=== PATIENT | male | born 1960 | race Caucasian/White ===

== ENCOUNTER 2016-05-03 04:25 | Inpatient (IN) | payer OTHER ==
[~2016-05-03] VITALS: Ht 182.9 cm; Wt 113.4 kg
--- NOTE | 2016-05-03 04:35 | NUR ---
PT BB [id number]. N/V & DIZZINESS S/P TAKING HCTZ. PT AOX3 RR EVEN AND UNLABORED. NO SOB NOTED. NAD NOTED. NO NVD AT THIS TIME. PT NOT DIAPHORETIC. PT GOWNED AND PLACED ON MONITOR WAITING FOR MD KIRKLAND.
--- NOTE | 2016-05-03 05:03 | NUR ---
DR. NAILS AT BEDSIDE FOR EVAL.
[2016-05-03] MEDS ORDERED: IV NS 0.9% 1,000 ML ONE (05:22)
[2016-05-03] MEDS ORDERED: IV SET PRIMARY 1 EA INFUS.SET MC ONE (05:22)
[2016-05-03] MEDS ORDERED: LORAZEPAM INJ 2 MG/ML VIAL ONE (05:26)
[2016-05-03] MEDS ORDERED: PROCHLORPERAZINE EDISYLATE 10 MG/2 ML VIAL ONE (05:27)
[2016-05-03] MEDS ORDERED: diphenhydrAMINE HCL 50 MG/ML VIAL ONE (05:27)
[2016-05-03] MEDS ORDERED: IV NS 0.9% 1,000 ML BAG IV ONE (05:30)
[2016-05-03] MEDS ORDERED: diphenhydrAMINE HCL 50 MG/ML VIAL IV ONE (05:30)
[2016-05-03] MEDS ORDERED: PROCHLORPERAZINE EDISYLATE 10 MG/2 ML VIAL IVP ONE (05:30)
[2016-05-03] MEDS ORDERED: LIDOCAINE VISCOUS 2% UD 15 ML UDC MM ONE (05:30)
[2016-05-03] MEDS ORDERED: MAG HYDROX/AL HYDROX/SIMETH 30 ML UDC PO ONE (05:30)
[2016-05-03] MEDS ORDERED: DICYCLOMINE HCL 10 MG CAPSULE PO ONE (05:30)
[2016-05-03] MEDS ORDERED: LORAZEPAM INJ 2 MG/ML VIAL IV ONE (05:30)
[2016-05-03] MEDS ORDERED: ONDANSETRON HCL/PF 4 MG/2 ML VIAL IVP ONE (05:30)
[2016-05-03] MEDS ORDERED: HYDROMORPHONE INJ 2 MG/ML DISP.SYRIN IV ONE (05:30)
[2016-05-03 05:38] LABS: BASOPHILS % (AUTO) 0.3 % (0.0-2.0); EOSINOPHILS % (AUTO) 0.5 % (0.0-6.0); HEMATOCRIT 43 % (39-51); HEMOGLOBIN 14.5 g/dL (13.5-17.5); LYMPHOCYTES # (AUTO) 0.7 /CMM (0.8-4.8); MEAN CORPUSCULAR HEMOGLOBIN 29 PG (26.0-33.0); MEAN CORPUSCULAR HGB CONC 34 g/dl (31.0-36.0); MEAN CORPUSCULAR VOLUME 86 fL (80-96); MONOCYTES # (AUTO) 0.4 /CMM (0.1-1.30); MONOCYTES % (AUTO) 7.1 % (2.0-12.0); NEUTROPHILS # (AUTO) 4.5 /CMM (1.8-8.9); NEUTROPHILS % (AUTO) 79.1 % (43.0-81.0); PLATELET COUNT (AUTO) 255 /CMM (150-450); RDW COEFFICIENT OF VARIATION 13.9 (11.5-15.0); RED BLOOD CELL COUNT(AUTO) 4.93 MIL/uL (4.5-6.0); WHITE BLOOD COUNT (AUTO) 5.7 K/uL (4.3-11.0)
[2016-05-03 05:46] LABS: CALCIUM, SERUM 9.3 mg/dL (8.5-10.1); POTASSIUM 3.2 mmol/L (3.5-5.1)
[2016-05-03 05:50] LABS: INR 0.99 (0.87-1.13); PROTHROMBIN TIME 10.6 SECS (9.5-12.7)
[2016-05-03 05:52] LABS: ALBUMIN 3.8 g/dL (3.4-5.0); BILIRUBIN,DIRECT 0.1 mg/dL (0.0-0.2); BILIRUBIN,TOTAL 0.5 mg/dL (0.2-1.0); TOTAL PROTEIN, SERUM 7.2 g/dL (6.4-8.2)
--- NOTE | 2016-05-03 06:27 | NUR ---
Patient is resting comfortably in bed with eyes closed. Easily aroused. VSS
--- NOTE | 2016-05-03 06:48 | NUR ---
PT TO CT.
--- NOTE | 2016-05-03 07:02 | NUR ---
PT RETURNED FROM CT.
--- NOTE | 2016-05-03 07:11 | NUR ---
REPORT GIVEN TO DONA KEYS FOR CARA.
--- NOTE | 2016-05-03 07:21 | NUR ---
RECEIVED PATIENT ON BED, ASLEEP. NO ACUTE DISTRESS. VSS
--- NOTE | 2016-05-03 07:48 | NUR ---
PANEL PAGED, DR GALE OUTGOING INSPECTOR [phone]
--- NOTE | 2016-05-03 08:11 | NUR ---
DR. MARTIN ON PHONE, TALKING TO MD TIAN FOR ADMISSION
--- NOTE | 2016-05-03 08:34 | NUR ---
REPORT GIVEN TO NURSE HORN FOR CARA
--- NOTE | 2016-05-03 08:35 | NUR ---
PATIENT TRANSFERRED TO [facility] [place]. S
[2016-05-03 08:50] VITALS: BP 114/63
--- NOTE | 2016-05-03 08:50 | NUR ---
MS RN NOTES PATIENT ON FLOOR. NO SOB OR DISTRESS NOTED AT THIS TIME. PATIENT DENIES PAIN. PATIENT WAS ABLE TO AMBULATE TO ROOM WITHOUT DIFFICULTY. VITAL SIGNS CHECKED AND RECORDED. IV FLUSHES WELL. PICTURES NOT NEEDED SKIN IS INTACT. BELONGINGS CHECKED AND ACCOUNTED FOR. PATIENT ORIENTED TO ROOM AND CALL LIGHT. BED IN A LOW POSITION, CALL LIGHT WITHIN PATIENT REACH. WILL CONTINUE TO MONITOR.
[2016-05-03] MEDS ORDERED: APIX5TAB PO (08:54)
[2016-05-03] MEDS ORDERED: TRAV5DRO EACHEYE (08:54)
[2016-05-03] MEDS ORDERED: HYDR12.5 PO (08:54)
[2016-05-03] MEDS ORDERED: ZOLPIDEM TARTRATE 5 MG TABLET PO PRN (09:00)
[2016-05-03] MEDS ORDERED: ONDANSETRON HCL/PF 4 MG/2 ML VIAL IVP PRN (09:00)
[2016-05-03] MEDS ORDERED: POTASSIUM CHLORIDE 20 MEQ TAB.PRT.SR PO ONE (09:00)
[2016-05-03] MEDS ORDERED: MECLIZINE HCL 12.5 MG TABLET PO PRN (09:00)
[2016-05-03] MEDS ORDERED: ACETAMINOPHEN 325 MG TABLET PO PRN (09:00)
[2016-05-03] MEDS ORDERED: Z GUARD REMEDY 2 OZ OINT TP PRN (09:00)
[2016-05-03] MEDS ORDERED: MAG HYDROX/AL HYDROX/SIMETH 30 ML UDC PO PRN (09:00)
[2016-05-03] MEDS ORDERED: MAGNESIUM HYDROXIDE 30 ML UDC PO PRN (09:00)
[2016-05-03] MEDS ORDERED: ONDANSETRON HCL/PF 4 MG/2 ML VIAL IV PRN (09:00)
[2016-05-03] MEDS ORDERED: HYDROCODONE/APAP 5/325MG 1 EACH TABLET PO PRN (09:00)
--- NOTE | 2016-05-03 09:10 | NUR ---
MS RN NOTES DR ORTEGA INFORMED OF NEED FOR MED RECON. STATES SHE WILL TAKE CARE OF IT.
[2016-05-03 09:21] LABS: THYROID STIMULATING HORMONE 0.778 uIU/mL (0.358-3.74)
[2016-05-03] MEDS ORDERED: IV SET PRIMARY PUMP SET 1 EA INFUS.SET MC ONE (09:49)
[2016-05-03] MEDS: IV NS 0.9% 1,000 ML IV PRN ×2 (10:07→22:14)
[2016-05-03] MEDS ORDERED: IV NS 0.9% 250 ML IV ONE (12:00)
[2016-05-03] MEDS ORDERED: CT SWABBABLE VALVE TRANS SET 1 EA INFUS.SET MC ONE (12:00)
[2016-05-03] MEDS ORDERED: IOHEXOL-350 100 ML VIAL IV ONE (12:00)
--- NOTE | 2016-05-03 13:45 | NUR ---
MS RN NOTES DR ORTEGA ON FLOOR. AGAIN INFORMED MD THAT MED RECON HAS NOT YET BEEN COMPLETED. MD STATES THAT SHE WILL TAKE CARE OF IT AFTER HER ROUNDS AND WROTE THE PATIENT'S NAME ON HER TO DO LIST.
--- NOTE | 2016-05-03 15:58 | NUR ---
MS RN NOTES REMINDED DR ORTEGA ABOUT MEDRECON ONCE MORE. TO PLACE ORDERS.
[2016-05-03 16:00] VITALS: BP 126/67
[2016-05-03] MEDS: APIXABAN 5 MG TABLET PO SCH (17:07)
--- NOTE | 2016-05-03 18:57 | NUR ---
MS RN NOTES NO SIGNIFICANT CHANGES IN PATIENT CONDITION THROUGHOUT THE SHIFT. NO SOB OR DISTRESS NOTED AT THIS TIME. PATIENT DENIES PAIN. BED IN LOW POSITION, CALL LIGHT WITHIN PATIENT REACH. WILL ENDORSE TO NEXT SHIFT RN.
--- NOTE | 2016-05-03 19:30 | NUR ---
RN NOTE; RECEIVED PT IN BED AWAKE, A, OX4. BREATHING EVENLY. NO SOB. NO C/O PAIN OR DISCOMFORT. NO EPISODE OF N/V OR VERTIGO. ON ONGOING IVF HYDRATION ASYA WELL. NEEDS ATTENDED. BED LOW LOCKED. CALL LIGHT WITHIN REACH , WILL CONT TO MONITOR
[2016-05-03 20:00] VITALS: BP 126/72
[2016-05-03] MEDS ORDERED: LATANOPROST EYE DROP 0.005% 2.5 ML BOTTLE EACHEYE SCH (22:00)
--- NOTE | 2016-05-03 22:16 | NUR ---
PT REFUSED XALATAN EYE DROP. PER PT HE TAKES DIFFERENT EYE DROPS FOR GLAUCOMA.
--- NOTE | 2016-05-03 22:46 | NUR ---
TYLENOL GIVEN FOR C/O MILD H/A. IV SITE CHANGED TO L HAND. WILL CONT TO MONITOR
--- NOTE | 2016-05-04 06:31 | NUR ---
RN NOTE; PT IN BED DOZING INTERMITTENTLY. BREATHING EVENLY. NO SOB,. NO DISTRESS. PT ABLE TO AMBULATE TO THE BATHROOM W/ SUPERVISION W/ NO EPISODE OR C/O VERTIGO OR N/V. ASSISTED W/ ADLS. CALL LIGHT WITHIN REACH. WILL CONT TO MONITOR AND WILL ENDORSE TO AM SHIFT FOR CARA.
[2016-05-04 07:19] LABS: CALCIUM, SERUM 8.6 mg/dL (8.5-10.1); CREATININE 0.8 mg/dL (0.6-1.3); MAGNESIUM 1.9 mg/dL (1.8-2.4); POTASSIUM 4.6 mmol/L (3.5-5.1)
[2016-05-04] MEDS ORDERED: PANTOPRAZOLE 40 MG TABLET.DR PO SCH (07:30)
[2016-05-04 07:32] LABS: BASOPHILS % (AUTO) 0.4 % (0.0-2.0); EOSINOPHILS % (AUTO) 1.2 % (0.0-6.0); HEMATOCRIT 39 % (39-51); HEMOGLOBIN 12.9 g/dL (13.5-17.5); LYMPHOCYTES # (AUTO) 1.1 /CMM (0.8-4.8); MEAN CORPUSCULAR HEMOGLOBIN 30 PG (26.0-33.0); MEAN CORPUSCULAR HGB CONC 34 g/dl (31.0-36.0); MEAN CORPUSCULAR VOLUME 89 fL (80-96); MONOCYTES # (AUTO) 0.4 /CMM (0.1-1.30); NEUTROPHILS # (AUTO) 2.4 /CMM (1.8-8.9); NEUTROPHILS % (AUTO) 59.4 % (43.0-81.0); PLATELET COUNT (AUTO) 219 /CMM (150-450); RDW COEFFICIENT OF VARIATION 14.4 (11.5-15.0); RED BLOOD CELL COUNT(AUTO) 4.36 MIL/uL (4.5-6.0)
--- NOTE | 2016-05-04 07:48 | NUR ---
MS/RN Patient received Patient received from warehouse worker 2nd shift. No needs at this time, appears comfortable. Will continue to monitor.
[2016-05-04 08:00] VITALS: BP 116/71
[2016-05-04] MEDS: APIXABAN 5 MG TABLET PO SCH (08:45)
[2016-05-04] MEDS: IV NS 0.9% 1,000 ML IV PRN (08:46)
--- NOTE | 2016-05-04 09:00 | NUR ---
MS/RN Medications Morning medications administered as ordered.
--- NOTE | 2016-05-04 10:27 | NUR ---
MS/search engine marketing strategist Head to toe assessment carried out, see flow sheet. No episodes of dizziness.
[2016-05-04] MEDS ORDERED: MECL12.582 PO (12:28)
[2016-05-04] MEDS ORDERED: LACT1CAP71 PO (12:33)
[2016-05-04] MEDS ORDERED: LEVO500T15 PO (12:33)
--- NOTE | 2016-05-04 15:35 | NUR ---
MS/RN - DISCHARGE NOTE PT. WAS DISCHARGED TO HOME IN STABLE CONDITION, WITH TRANSPORT BEING PROVIDED BY . HEPLOCK REMOVED, PRESSURE DRESSING APPLIED CURRENTLY TAKING ANTICOAGULATION MEDICATION. NAME BANDS REMOVED PRIOR TO LEAVING FLOOR. EDUCATION PROVIDED TO PATIENT ABOUT VERTIGO, SIGNS AND SYMPTOMS AND WHEN TO RETURN TO THE EMERGENCY ROOM. PATIENT STATED HE UNDERSTOOD ALL OF THE EDUCATION AND WAS ABLE TO REPEAT BACK ALL INFORMATION PROVIDED. PRESCRIPTION WAS PROVIDED TO PT. COPY PLACED IN CHART, INSTRUCTED PT. ON IMPORTANCE OF COMPLETING ENTIRE DOSAGE OF MEDICATION. TIME ALLOWED FOR QUESTIONS AND CONCERNS TO BE ADDRESSED. PT. VERBALIZED THE INTENT TO FOLLOW UP WITH HIS PRIMARY CARE DOCTOR THIS WEEK. ALL PERSONAL BELONGING WERE SIGNED ON HIS BELONGINGS LIST. ESCORTED TO MAIN LOBBY BY DAVID.
== END 2016-05-04 16:47 | disposition home or self-care (01) | DRG 111 ==
LOC: ER 04:26 → MEDSG2 08:36
PROVIDERS: ADMIT Student in an Organized Health Care Education/Training Program; ATTEND Student in an Organized Health Care Education/Training Program
DX: H81.10 Benign paroxysmal vertigo, unspecified ear (principal); I10 Essential (primary) hypertension; Z86.718 Personal history of other venous thrombosis and embolism; E87.6 Hypokalemia; T50.2X5A Adverse effect of carbonic-anhydrase inhibitors, benzothiadiazides and other diuretics, initial encounter; J01.90 Acute sinusitis, unspecified
CPT/HCPCS: 36415; 70450-TC; 70496-TC; 70498-TC; 80048-TC; 80061-TC; 80076-TC; 82962-TC; 83690-TC; 83735-TC; 84443-TC; 85025-TC; 85730-TC; A4606; J0780; J1200; J2060; J7030; J7050; Q9967; Z7610

== ENCOUNTER 2016-05-04 23:14 | Inpatient (IN) | payer OTHER ==
[~2016-05-04] VITALS: Ht 182.9 cm; Wt 117.5 kg
[~2016-05-04 23:14] MED LIST: APIX5TAB PO; HYDR12.5 PO; LACT1CAP71 PO; LEVO500T15 PO; MECL12.582 PO; TRAV5DRO EACHEYE
--- NOTE | 2016-05-04 23:55 | NUR ---
PT A/O4 BREATHING EFFORTLESSLY ON ROOM AIR, PT STATES HE WAS JUST DISCHARGED FROM THIS HOSPITAL EARLIER TODAY, PT STATES HE IS STILL HVAING HORRIBLE ABDOMINAL PAIN AND VERTIGO, PT STATES HE TOOK A MECLAZINE FOR VERTIGO PRIOR TO ARRIVAL AND STATES IT HELPED A LITTLE BUT STILL IS DIZZY, PT ON MONITOR, FAMILY AT BEDSIDE, MD AT BEDSIDE WILL CONTINUE TO MONITOR.
[2016-05-05] MEDS ORDERED: IV NS 0.9% 1,000 ML BAG IV ONE
[2016-05-05] MEDS ORDERED: MAG HYDROX/AL HYDROX/SIMETH 30 ML UDC PO ONE
[2016-05-05] MEDS ORDERED: LORAZEPAM INJ 2 MG/ML VIAL IV ONE
[2016-05-05] MEDS ORDERED: LIDOCAINE VISCOUS 2% UD 15 ML UDC MM ONE
[2016-05-05] MEDS ORDERED: MECLIZINE HCL 12.5 MG TABLET PO ONE
[2016-05-05] MEDS ORDERED: DICYCLOMINE HCL 10 MG CAPSULE PO ONE ×2 (00:11)
[2016-05-05] MEDS ORDERED: LIDOCAINE VISCOUS 2% UD 15 ML UDC ONE (00:11)
[2016-05-05] MEDS ORDERED: MAG HYDROX/AL HYDROX/SIMETH 30 ML UDC ONE (00:11)
[2016-05-05] MEDS ORDERED: IV NS 0.9% 1,000 ML ONE ×2 (00:11→03:54)
[2016-05-05] MEDS ORDERED: IV SET PRIMARY 1 EA INFUS.SET MC ONE (00:11)
[2016-05-05] MEDS ORDERED: LORAZEPAM INJ 2 MG/ML VIAL ONE (00:12)
[2016-05-05] MEDS ORDERED: FAMOTIDINE/PF INJ 20 MG/2 ML VIAL IV ONE ×2 (00:12)
[2016-05-05] MEDS ORDERED: MECLIZINE HCL 25 MG TABLET ONE (00:25)
[2016-05-05 00:31] LABS: BASOPHILS % (AUTO) 0.2 % (0.0-2.0); EOSINOPHILS % (AUTO) 0.5 % (0.0-6.0); HEMATOCRIT 41 % (39-51); HEMOGLOBIN 13.7 g/dL (13.5-17.5); LYMPHOCYTES # (AUTO) 0.8 /CMM (0.8-4.8); LYMPHOCYTES % (AUTO) 13.7 % (20.0-44.0); MEAN CORPUSCULAR HEMOGLOBIN 29 PG (26.0-33.0); MEAN CORPUSCULAR HGB CONC 34 g/dl (31.0-36.0); MEAN CORPUSCULAR VOLUME 87 fL (80-96); MONOCYTES # (AUTO) 0.4 /CMM (0.1-1.30); MONOCYTES % (AUTO) 6.2 % (2.0-12.0); NEUTROPHILS # (AUTO) 4.5 /CMM (1.8-8.9); NEUTROPHILS % (AUTO) 79.4 % (43.0-81.0); PLATELET COUNT (AUTO) 245 /CMM (150-450); RDW COEFFICIENT OF VARIATION 14.1 (11.5-15.0); WHITE BLOOD COUNT (AUTO) 5.7 K/uL (4.3-11.0)
[2016-05-05 00:45] LABS: CALCIUM, SERUM 8.9 mg/dL (8.5-10.1); POTASSIUM 3.4 mmol/L (3.5-5.1)
[2016-05-05 00:52] LABS: ALBUMIN 3.7 g/dL (3.4-5.0); BILIRUBIN,DIRECT 0.1 mg/dL (0.0-0.2); BILIRUBIN,TOTAL 0.4 mg/dL (0.2-1.0); TOTAL PROTEIN, SERUM 7.1 g/dL (6.4-8.2)
--- NOTE | 2016-05-05 01:09 | NUR ---
PT SLEEPING IN NO APPARENT DISTRESS VSS MD MADE AWARE WILL CONTINUE TO MONITOR.
--- NOTE | 2016-05-05 01:54 | NUR ---
PT WOKE UP AND STATES HE IS HAVING THE SAME PAIN BEFORE AND IS HVAING VERTIGO AGAIN MD MADE AWARE WILL CONTINUE TO MONITOR.
[2016-05-05] MEDS ORDERED: MAGNESIUM HYDROXIDE 30 ML UDC PO PRN (02:30)
[2016-05-05] MEDS ORDERED: ZOLPIDEM TARTRATE 5 MG TABLET PO PRN (02:30)
[2016-05-05] MEDS ORDERED: ENOXAPARIN SODIUM 40 MG/0.4 ML DISP.SYRIN SQ SCH (02:30)
[2016-05-05] MEDS ORDERED: HYDROCODONE/APAP 5/325MG 1 EACH TABLET PO PRN (02:30)
[2016-05-05] MEDS ORDERED: Z GUARD REMEDY 2 OZ OINT TP PRN (02:30)
[2016-05-05] MEDS ORDERED: MAG HYDROX/AL HYDROX/SIMETH 30 ML UDC PO PRN (02:30)
[2016-05-05] MEDS ORDERED: ONDANSETRON HCL/PF 4 MG/2 ML VIAL IVP PRN (02:30)
[2016-05-05 03:09] VITALS: BP 159/91
--- NOTE | 2016-05-05 03:09 | NUR ---
RECEIVED NEW ADMISSION, DX OF INTRACTABLE DIZZINESS, ALERT AND ORIENTED X4, CALM, NO SOB, NO RESPIRATORY DISTRESS, LUNG SOUNDS ARE CLEAR, O2 SAT AT ROOM AIR 98%, COMPLAINING OF EPIGASTRIC PAIN OF 4/10, COMPLAINS OF PAIN ON PALPATION. PATIENT DENIES VOMITING BLOOD, DENIES BLOOD IN STOOL, REPORTED BM X5, FORMED STOOL. UNSTEADY GAIT, ABLE TO AMBULATE WITH SUPERVISION TO THE TOILET. DURING ADMISSION, PATIENT DENIES VERTIGO, RECEIVED SEVERAL MEDICATIONS IN ER. KEPT SAFE AND COMFORTABLE, ORIENTED TO ROOM, CALL LIGHT AND TOILET. PROVIDED URINAL. NEEDS ATTENDED.
[2016-05-05 03:10] VITALS: BP 159/91
[2016-05-05] MEDS ORDERED: IV SET PRIMARY PUMP SET 1 EA INFUS.SET MC ONE (03:54)
[2016-05-05] MEDS: IV NS 0.9% 1,000 ML IV PRN ×2 (05:48→22:16)
--- NOTE | 2016-05-05 06:37 | NUR ---
TEXTED DR. HORN FOR MRI APPROVAL.
--- NOTE | 2016-05-05 06:37 | NUR ---
PATIENT RESTING COMFORTABLY IN BED, NO DISTRESS, RIGHT AC PERIPHERAL LINE IS PATENT AND INFUSING WELL WITH NS AT 75 CC/HR. ADEQUATE URINE OUTPUT OF CLEAR AND YELLOW URINE. NEEDS ATTENDED, KEPT SAFE AND COMFORTABLE, CALL LIGHT WITHIN REACH.
--- NOTE | 2016-05-05 07:57 | NUR ---
CANCELLED MRI PER DR. HORN
--- NOTE | 2016-05-05 07:57 | NUR ---
MEDICAL STAFF CREDENTIALING COORDINATOR OPENING NOTES RECEIVED PT. IN STABLE CONDITION FROM WAD IMPREGNATOR NURSE. NO EXPRESSED SYMPTOMS OF DIZZINESS OR PAIN AT THIS TIME. PT ON TELE MONITOR READING SINUS SONU, HR 54. IV ON RIGHT AC 20G INTACT AND PATENT. BED IN LOW LOCKED POSITION, SIDE RAILS UP X2, CALL LIGHT WITHIN REACH. WILL CONTINUE TO MONITOR.
[2016-05-05 08:00] VITALS: BP 149/77
[2016-05-05] MEDS: ACIDOPHILUS/BULGARICUS 1 EACH TAB.CHEW PO SCH ×2 (09:26→17:14)
[2016-05-05] MEDS: PANTOPRAZOLE 40 MG TABLET.DR PO SCH (09:26)
[2016-05-05] MEDS: LEVOFLOXACIN (500MG) 500 MG TABLET PO SCH (09:26)
[2016-05-05] MEDS: MECLIZINE HCL 12.5 MG TABLET PO PRN ×2 (09:34→20:34)
[2016-05-05] MEDS ORDERED: POTASSIUM CHLORIDE 20 MEQ TAB.PRT.SR PO SCH (11:30)
[2016-05-05] MEDS ORDERED: DIAZEPAM 5 MG TABLET PO PRN (15:30)
[2016-05-05 16:00] VITALS: BP 150/87
[2016-05-05] MEDS: DIAZEPAM 5 MG TABLET PO SCH (16:30)
--- NOTE | 2016-05-05 19:41 | NUR ---
PSYCHIATRIC TECHNICIAN CLOSING NOTES PT. IN STABLE LYING IN BED. NO EXPRESSED SYMPTOMS OF DIZZINESS OR PAIN AT THIS TIME. PT ON TELE MONITOR READING SINUS SONU, HR 54. IV ON RIGHT AC 20G INTACT AND PATENT. BED IN LOW LOCKED POSITION, SIDE RAILS UP X2, CALL LIGHT WITHIN REACH. WILL CONTINUE TO MONITOR. ALL ORDERS CARRIED OUT THROUGHOUT SHIFT. ALL PT. NEEDS ADDRESSED. WILL ENDORSE TO HEALTH CONCIERGE NURSE FOR CARA
--- NOTE | 2016-05-05 19:45 | NUR ---
BIOFUELS PLANT CONSTRUCTION WORKER INITIAL NOTE RECEIVED PT RESTING IN BED, EASY TO AROUSE, COMPLAINT OF ABDOMINAL PAIN DURING PHYSICAL ASSESSMENT, ADMITTED DUE TO INTRACTABLE DIZZINESS, PER AM NURSE GI CONSULT ORDER, DR CASSIDY AWARE, PT HAS HAD HIGH BP DURING DAYSHIFT, MD LISA PENA AWARE, HE DECIDED NOT TO ORDER BP MEDICATION, BP IS CURRENTLY 150/85, PT HAS BEEN BRADYCARDIC, MD AWARE AND NO FURTHER ACTION REQUIRED PER MD. PT IS CLEAN/DRY AND COMFORTABLE, SAFETY MEASURES WILL BE MAINTAINED, NEEDS WILL BE ANTICIPATED AND ATTENDED TO DURING HOURLY ROUNDS AND NEEDED.
[2016-05-05 20:00] VITALS: BP 150/85
[2016-05-05] MEDS: LATANOPROST EYE DROP 0.005% 2.5 ML BOTTLE EACHEYE SCH (20:33)
[2016-05-05] MEDS: APIXABAN 5 MG TABLET PO SCH (20:34)
[2016-05-06] VITALS: BP 137/69
[2016-05-06] MEDS: ACETAMINOPHEN 325 MG TABLET PO PRN ×2 (01:50→12:05)
[2016-05-06 04:00] VITALS: BP 140/81
[2016-05-06] MEDS: DIAZEPAM 5 MG TABLET PO SCH ×2 (04:30→17:16)
--- NOTE | 2016-05-06 06:38 | NUR ---
CLINICAL REHAB SPECIALIST CLOSING NOTE PT REMAINED STABLE DURING AUTOMATION AND CONTROLS INSTRUCTOR, PT WAS ABLE TO SLEEP INTERMITTENTLY, TYLENOL GIVEN FOR HEADACHE AND EFFECTIVE, PT WAS CLEAN/DRY AND COMFORTABLE, ALL SAFETY MEASURES OBSERVED AT ALL TIMES, WILL ENDORSE TO INCOMING NURSE FOR CARA.
[2016-05-06 07:01] VITALS: BP 133/83
[2016-05-06 07:13] LABS: BASOPHILS % (AUTO) 0.4 % (0.0-2.0); EOSINOPHILS # (AUTO) 0.1 /CMM (0.0-0.7); EOSINOPHILS % (AUTO) 1.2 % (0.0-6.0); HEMATOCRIT 38 % (39-51); HEMOGLOBIN 12.9 g/dL (13.5-17.5); LYMPHOCYTES # (AUTO) 1.2 /CMM (0.8-4.8); LYMPHOCYTES % (AUTO) 24.7 % (20.0-44.0); MEAN CORPUSCULAR HEMOGLOBIN 30 PG (26.0-33.0); MEAN CORPUSCULAR HGB CONC 34 g/dl (31.0-36.0); MEAN CORPUSCULAR VOLUME 88 fL (80-96); MONOCYTES # (AUTO) 0.5 /CMM (0.1-1.30); MONOCYTES % (AUTO) 9.4 % (2.0-12.0); NEUTROPHILS # (AUTO) 3.1 /CMM (1.8-8.9); NEUTROPHILS % (AUTO) 64.3 % (43.0-81.0); PLATELET COUNT (AUTO) 215 /CMM (150-450); RDW COEFFICIENT OF VARIATION 13.9 (11.5-15.0); RED BLOOD CELL COUNT(AUTO) 4.33 MIL/uL (4.5-6.0); WHITE BLOOD COUNT (AUTO) 4.9 K/uL (4.3-11.0)
--- NOTE | 2016-05-06 07:36 | NUR ---
SURGICAL INSTRUMENTS INSPECTOR OPENING NOTES RECEIVED PT. IN STABLE CONDITION FROM WELDER FITTER ARC NURSE. PT SLEEPING COMFORTABLY IN BED. NO SIGNS OF DISTRESS OR PAIN AT THIS TIME. PT ON TELE MONITOR READING SINUS SONU, HR 46. IV ON RIGHT AC 20G INTACT AND PATENT. NO REDNESS OR INFILTRATION NOTED. BED IN LOW LOCKED POSITION, SIDE RAILS UP X2, CALL LIGHT WITHIN REACH. WILL CONTINUE TO MONITOR.
[2016-05-06 08:00] VITALS: BP 136/78
[2016-05-06 08:08] LABS: CALCIUM, SERUM 8.2 mg/dL (8.5-10.1); CREATININE 0.8 mg/dL (0.6-1.3); MAGNESIUM 1.8 mg/dL (1.8-2.4); PHOSPHORUS 2.7 mg/dL (2.5-4.9); POTASSIUM 3.9 mmol/L (3.5-5.1)
[2016-05-06] MEDS: ACIDOPHILUS/BULGARICUS 1 EACH TAB.CHEW PO SCH ×2 (08:26→16:51)
[2016-05-06] MEDS: PANTOPRAZOLE 40 MG TABLET.DR PO SCH (08:26)
[2016-05-06] MEDS: LEVOFLOXACIN (500MG) 500 MG TABLET PO SCH (08:27)
[2016-05-06] MEDS: APIXABAN 5 MG TABLET PO SCH ×2 (08:56→16:51)
--- NOTE | 2016-05-06 10:54 | NUR ---
MS RN NOTES PT. NPO EXCEPT MEDS PER DR. ALBERT ORDER. 1630 DIAZEPAM MAY BE ADMINISTERED. HOLD 1700 APIXABAN AND ACIDOPHILUS PER MD ORDERS.
[2016-05-06] MEDS ORDERED: IV NS 0.9% 1,000 ML ONE (11:59)
[2016-05-06] MEDS: IV NS 0.9% 1,000 ML IV PRN (12:04)
[2016-05-06] MEDS: MECLIZINE HCL 12.5 MG TABLET PO PRN ×2 (12:05→22:04)
--- NOTE | 2016-05-06 13:59 | NUR ---
MS RN NOTES SCHEDULED NS FLUIDS ADMINISTERED PER MD ORDER
[2016-05-06 16:00] VITALS: BP 151/80
--- NOTE | 2016-05-06 19:12 | NUR ---
MS RN CLOSING NOTES PT. IN STABLE CONDITION RESTING IN BED. NO SIGNS OF DISTRESS OR PAIN NOTED AT THIS TIME. BED IN LOW LOCKED POSITION, SIDE RAILS UP X2, CALL LIGHT WITHIN REACH. ALL MD ORDERS AND PT. NEEDS CARRIED OUT THROUGHOUT SHIFT. WILL ENDORSE TO NIGHT NURSE FOR CARA
--- NOTE | 2016-05-06 19:30 | NUR ---
MANAGER PROGRAMMING INITIAL NOTE RECEIVED PT AWAKE AND ALERT, ORIENTED X3, NO COMPLAINT OF PAIN OR RESPIRATORY DISTRESS NOTED DURING PHYSICAL ASSESSMENT, PT IS SCHEDULE TO UNDERGO EGD TOMORROW MORNING, HE WILL BE KEPT NPO AFTER MIDNIGHT, PT IS AWARE AND COOPERATIVE, ON TELE MONITOR SHOWING SINUS BRADYCARDIA HR OF 58, RIGHT AC 20G INTACT AND PATENT, CURRENTLY RUNNING NORMAL SALINE @ 75CC/HR, PT IS CLEAN/DRY AND COMFORTABLE, SAFETY MEASURES WILL BE MAINTAINED DURING BELT BUILDER HELPER, NEEDS WILL BE ANTICIPATED AND ATTENDED TO DURING HOURLY ROUNDS AND NEEDED.
[2016-05-06 20:00] VITALS: BP 158/85
[2016-05-06] MEDS: LATANOPROST EYE DROP 0.005% 2.5 ML BOTTLE EACHEYE SCH (22:05)
[2016-05-07] VITALS: BP 165/84
[2016-05-07 04:00] VITALS: BP 153/84
[2016-05-07] MEDS: IV NS 0.9% 1,000 ML IV PRN (05:41)
--- NOTE | 2016-05-07 06:19 | NUR ---
HEALTHCARE ADVISORY SERVICES MANAGER CLOSING NOTE PT REMAINED STABLE DURING STOCK CONTROL SUPERVISOR, HE WAS ABLE TO SLEEP MOST OF THE NIGHT, PT IS AWARE OF SCHEDULE EGD FOR TODAY, HE REMAINED NPO AFTER MIDNIGHT, COOPERATIVE AND COMPLIANT WITH CARE, CONSENTS SIGNED AND PLACED IN CHART, PT WAS KEPT CLEAN/DRY AND COMFORTABLE, SAFETY MEASURES WERE MAINTAINED THROUGHOUT NIGHT, NEEDS ANTICIPATED AND ATTENDED TO, WILL ENDORSE TO INCOMING NURSE FOR CARA.
[2016-05-07 06:59] VITALS: BP 148/74
[2016-05-07] MEDS: PANTOPRAZOLE 40 MG TABLET.DR PO SCH ×2 (07:30→09:40)
--- NOTE | 2016-05-07 07:40 | NUR ---
DIE REPAIRER FORGING OPENING RECEIVED PT A/OX4 DENIES SOB DIFFICULTY BREATHING AND STATES CONSTANT EPIGASTRIC PAIN BUT DOES NOT WANT TO TAKE ANY MEDICATIONS. PATIENT STATES NO OTHER NEEDS AT THIS TIME AND APPEARS STABLE. PATIENT TELE SINUS SONU 57 AT THIS TIME. CALL LIGHT IN REACH, BED LOWERED AND LOCKED, RAILS UPX3 FOR SAFETY AND WILL ROUND Q2H OR LESS PER NEEDS. PATIENT NPO AT THIS TIME AND AWARE OF STATUS
[2016-05-07 08:00] VITALS: BP 148/74
--- NOTE | 2016-05-07 08:08 | NUR ---
FORESTRY CREW CHIEF NOTES PATIENT BEING TAKEN DOWN FOR EGD. STABLE CONDITION
[2016-05-07] MEDS: DIAZEPAM 5 MG TABLET PO SCH (09:00)
--- NOTE | 2016-05-07 09:27 | NUR ---
WEB PORTAL DEVELOPER NOTES PATIENT RETURNED FROM EGD. STABLE
[2016-05-07 09:40] VITALS: BP 141/80
[2016-05-07] MEDS: ACIDOPHILUS/BULGARICUS 1 EACH TAB.CHEW PO SCH ×2 (09:40→17:03)
[2016-05-07] MEDS: LEVOFLOXACIN (500MG) 500 MG TABLET PO SCH (09:40)
[2016-05-07] MEDS: APIXABAN 5 MG TABLET PO SCH ×2 (09:41→17:03)
[2016-05-07] MEDS: ACETAMINOPHEN 325 MG TABLET PO PRN (13:21)
--- NOTE | 2016-05-07 14:04 | NUR ---
MS RN NOTES PATIENT REQUESTING NOT TO HAVE IVF. NOTIFIED DR LISA PAGAN . PER MD BLAINE GREEN IVF
[2016-05-07] MEDS ORDERED: PANT40TA2 PO (17:15)
[2016-05-07] MEDS ORDERED: Diazepam PO (17:15)
--- NOTE | 2016-05-07 17:47 | NUR ---
MS RN NOTES PATIENT IV REMOVED PRESSURE AND DRESSING APPLIED NO BLEEDING. CALLED PATIENT PHARMACY FOR MD PRESCRIPTION OF VALIUM AND PROTONIX
--- NOTE | 2016-05-07 18:35 | NUR ---
MS ANVIL SEATING PRESS OPERATOR PT STABLE NO COMPLICATIONS NO CHANGES THROUGHOUT DAY. PATIENT SIGNED DC PAPERWORK AND EDUCATED AND STATED UNDERSTANDING. ALL BELONGINGS ACCOUNTED FOR. PATIENT ASSISTED TO WHEELCHAIR BY DAVID LEE NO COMPLICATIONS. PATIENT LEFT IN STABLE CONDITION.
== END 2016-05-07 18:39 | disposition home or self-care (01) | DRG 111 ==
LOC: ER 23:17 → TELE 05-05 02:53 → MED 05-07 16:58
PROVIDERS: ADMIT Internal Medicine; ATTEND Internal Medicine
PROC: 0DB58ZX Excision of Esophagus, Via Natural or Artificial Opening Endoscopic, Diagnostic (ICD-10-PCS; principal; 2016-05-07 08:30)
PROC: 0DB68ZX Excision of Stomach, Via Natural or Artificial Opening Endoscopic, Diagnostic (ICD-10-PCS; principal; 2016-05-07 08:30)
DX: H81.399 Other peripheral vertigo, unspecified ear (principal); I10 Essential (primary) hypertension; Z86.718 Personal history of other venous thrombosis and embolism; G47.33 Obstructive sleep apnea (adult) (pediatric); H81.10 Benign paroxysmal vertigo, unspecified ear; Z87.11 Personal history of peptic ulcer disease; E87.6 Hypokalemia; R00.1 Bradycardia, unspecified; Z79.01 Long term (current) use of anticoagulants; R10.13 Epigastric pain
CPT/HCPCS: 36415; 71010-TC; 76705-TC; 80048-TC; 80076-TC; 82962-TC; 83690-TC; 83735-TC; 84100-TC; 85025-TC; 85652-TC; 86850-TC; 87081-TC; 88305-TC; 88313-TC; 88342; 93307-TC; A4606; J2060; J2704; J3490; J7030; J8597; Z7610